=== PATIENT | male | born 1965 | race Caucasian/White ===

== ENCOUNTER 2020-12-05 17:45 | Outpatient (CLI) | payer BC, SELFPAY | END 2020-12-05 17:46 | disposition home or self-care (01) | LOC: ANHCOVIDVC 17:45 | PROVIDERS: PCP Family Medicine | DX: Z23 Encounter for immunization (principal) | CPT/HCPCS: 0001A; 91300 ==

== ENCOUNTER 2020-12-26 17:40 | Outpatient (CLI) | payer BC, SELFPAY | END 2020-12-26 17:41 | disposition home or self-care (01) | LOC: ANHCOVIDVC 17:40 | PROVIDERS: PCP Family Medicine | DX: Z23 Encounter for immunization (principal) | CPT/HCPCS: 0002A; 91300 ==